=== PATIENT | female | born 1995 ===

== ENCOUNTER 2022-03-05 10:43 | Inpatient (IN) | payer SELFPAY ==
[~2022-03-05 10:43] MED LIST: Ampicillin 1 GM in Sodium Chloride 0.9% 100 ML IV ONE; Ampicillin 2 GM in Sodium Chloride 0.9% 100 ML IV ONE; Lactated Ringers 1,000 ML IV ONE
[2022-03-05] MEDS ORDERED: Oxytocin/Lactated Ringers 10 UNIT/1,000 ML BAG IV ONE (22:49)
[2022-03-06] MEDS ORDERED: Ibuprofen 600 MG Tab PO ONE (00:50)
[2022-03-07] MEDS ORDERED: Ibuprofen 600 MG Tab PO ONE (11:00)
== END 2022-03-07 14:58 | disposition home or self-care (01) | DRG 807 ==
LOC: JD.OBCHECK 10:43 → JD.ZCENSUS 10:48 → OBSVTOIN 10:49
PROVIDERS: ADMIT Obstetrics & Gynecology; ATTEND Obstetrics & Gynecology
PROC: 10E0XZZ Delivery of Products of Conception, External Approach (ICD-10-PCS; principal; 2022-03-05)
PROC: 10907ZC Drainage of Amniotic Fluid, Therapeutic from Products of Conception, Via Natural or Artificial Opening (ICD-10-PCS; 2022-03-05)
DX: O48.0 Post-term pregnancy (principal); Z37.0 Single live birth; Z3A.40 40 weeks gestation of pregnancy
CPT/HCPCS: 36415; 59025; 59409; 86850; 86900; 86901; A9270-GY; J0290; J2590; J7120